=== PATIENT | male | born 1930 | race Caucasian/White ===

== ENCOUNTER 2019-09-05 | Emergency (ER) | payer MEDICARE, BC ==
[~2019-09-05] MED LIST: LEVOTHROID150 MCG PO; NORCO1 TA1 PO
[2019-09-05] MEDS ORDERED: [UNRECOGNIZED DRUG - SUPPLY] (09:31)
[2019-09-05 10:32] LABS: IMMATURE GRANULOCYTES 0.4 % (0.0-5.0); MEAN CELL VOLUME 104.7 fL CALC (80.0-100.0); MEAN CORPUSCULAR HGB 35.9 pG CALC (26.0-32.0); MEAN CORPUSCULAR HGB CONC 34.3 g/L CALC (32.0-36.0); NEUT# 5.35 thou/uL (1.82-7.42); RED BLOOD COUNT 3.43 mill/uL (4.70-6.10); RED CELL DISTRI WIDTH 12.7 % (11.5-15.5)
[2019-09-05 10:37] LABS: HEMATOCRIT 35.9 % (39.0-50.0); HEMOGLOBIN 12.3 g/dl (14.0-18.0)
[2019-09-05 10:54] LABS: ANION GAP 14 (6-22 (CALC)); BUN 17 mg/dL (8-23); BUN/CREATININE RATIO 15 (12-20 (CALC)); CARBON DIOXIDE 25 mmol/l (22-30); CHLORIDE 97 mmol/l (95-108); CREATININE 1.1 mg/dL (0.7-1.3); GFR > 60 ML/MIN (>=60 (CALC)); GFR FOR AFR.AMER. > 60 ML/MIN (>=60 (CALC)); POTASSIUM 4.5 mmol/l (3.5-5.1)
[2019-09-05 10:56] LABS: SODIUM 131 mmol/l (137-146)
== END 2019-09-05 12:17 | disposition home or self-care (01) ==
PROVIDERS: Family Medicine
PROC: 2W3QX1Z Immobilization of Right Lower Leg using Splint (ICD-10-PCS; principal; 2019-09-05)
DX: S82.831A Other fracture of upper and lower end of right fibula, initial encounter for closed fracture (principal); R55 Syncope and collapse; W10.9XXA Fall (on) (from) unspecified stairs and steps, initial encounter; Y92.009 Unspecified place in unspecified non-institutional (private) residence as the place of occurrence of the external cause